=== PATIENT | male | born 1975 | race African-American/Black ===

== ENCOUNTER 2017-01-06 03:27 | Emergency (ER) | payer MEDICAID, OTHER ==
[~2017-01-06] VITALS: Ht 180.3 cm; Wt 74.0 kg
[2017-01-06] MEDS ORDERED: KETOROLAC 30MG/ML VIAL IM ONE (06:30)
[2017-01-06] MEDS ORDERED: IBUPROFEN 600MG TABLET PO ONE (07:00)
[2017-01-06] MEDS ORDERED: SODIUM CHLORIDE 0.9% 1,000 ML IV ONE (11:59)
[2017-01-06] MEDS ORDERED: VANCOMYCIN 1 G PREMIX 200 ML IV ONE (12:00)
[2017-01-06] MEDS ORDERED: PIPERACILLIN/TAZ 3.375G PREMIX 50 ML IV ONE (12:00)
[2017-01-06 12:44] LABS: BASOPHILS % 0.9 % (0.0-2.0); EOSINOPHILS % 2.9 % (0.0-5.0); HEMATOCRIT. 46.6 % (42.0-52.0); HEMOGLOBIN. 15.7 g/dL (14.0-18.0); LYMPHOCYTES % 33.5 % (20.0-50.0); MEAN CORPUSCULAR HEMOGLOBIN 33.9 pg (28.0-32.0); MEAN CORPUSCULAR VOLUME 100.6 fL (80.0-94.0); MEAN PLATELET VOLUME 9.6 fl (7.4-10.4); MONOCYTES % 11.9 % (2.0-8.0); NEUTROPHILS % 50.8 % (40.0-76.0); PLATELET 238 x1000/uL (130-400); RED BLOOD CELL COUNT 4.63 mill/uL (4.7-6.1); RED CELL DISTRIBUTION WIDTH 13.6 % (11.6-14.6)
[2017-01-06 12:52] LABS: PROTHROMBIN TIME 10.4 sec (9.4-11.6)
[2017-01-06 12:58] LABS: CARBON DIOXIDE 30 mEq/L (21-32); CHLORIDE 106 mEq/L (98-107)
[2017-01-06 14:15] VITALS: BP 95/63
== END 2017-01-06 14:37 | disposition short-term general hospital (02) ==
LOC: ER 03:27
DX: M65.9 Synovitis and tenosynovitis, unspecified (principal); F17.210 Nicotine dependence, cigarettes, uncomplicated; Z87.828 Personal history of other (healed) physical injury and trauma
CPT/HCPCS: 36415; 73130; 76881; 80048; 83605; 85025; 85610; 87040; 96365; 96367; 99285; J1885; J2543; J3370; J7030; Z7610

== ENCOUNTER 2018-12-14 01:39 | Emergency (ER) | payer MEDICAID ==
[~2018-12-14] VITALS: Ht 180.3 cm; Wt 70.0 kg
[2018-12-14 06:22] VITALS: BP 100/72
== END 2018-12-14 06:23 | disposition home or self-care (01) ==
LOC: ER 02:36
DX: J20.9 Acute bronchitis, unspecified (principal); F17.210 Nicotine dependence, cigarettes, uncomplicated; F12.90 Cannabis use, unspecified, uncomplicated
CPT/HCPCS: 71045; 99283

== ENCOUNTER 2019-05-02 07:57 | Emergency (ER) | payer MEDICAID ==
[~2019-05-02] VITALS: Ht 180.3 cm; Wt 70.0 kg
[2019-05-02] MEDS ORDERED: IBUPROFEN 600MG TABLET PO ONE (09:00)
[2019-05-02] MEDS ORDERED: TETANUS, DIPHTHERIA, PERTUSSIS VAC/PF 0.5ML (>7YR OLD) IM ONE (09:00)
[2019-05-02] MEDS ORDERED: BACITRACIN ZINC OINT UDPKT TOP ONE (09:00)
[2019-05-02 10:40] VITALS: BP 102/68
== END 2019-05-02 12:02 | disposition home or self-care (01) ==
LOC: ER 07:57
DX: S61.218A Laceration without foreign body of other finger without damage to nail, initial encounter (principal); W26.0XXA Contact with knife, initial encounter; Y93.89 Activity, other specified; Y92.89 Other specified places as the place of occurrence of the external cause; Y99.8 Other external cause status; F12.10 Cannabis abuse, uncomplicated; F17.200 Nicotine dependence, unspecified, uncomplicated
CPT/HCPCS: 12001; 90471; 90715; 99283

== ENCOUNTER 2019-06-02 06:19 | Emergency (ER) | payer MEDICAID ==
[~2019-06-02] VITALS: Ht 182.9 cm; Wt 75.0 kg
[2019-06-02 06:42] VITALS: BP 103/71
== END 2019-06-02 07:21 | disposition home or self-care (01) ==
LOC: ER 06:19
DX: Z48.02 Encounter for removal of sutures (principal)
CPT/HCPCS: 99281